=== PATIENT | female | born 1955 | race Caucasian/White ===

== ENCOUNTER 2017-02-27 10:37 | Emergency (ER) | payer OTHER ==
[2017-02-27] MEDS ORDERED: DEXAMETHASONE 10 MG/ML VIAL PO STA (11:54)
[2017-02-27] MEDS ORDERED: MECLIZINE 12.5 MG TABLET PO STA (11:55)
[2017-02-27] MEDS ORDERED: MECLIZINE 12.5 MG TABLET PO ONE (11:56)
[2017-02-27] MEDS ORDERED: DEXAMETHASONE 10 MG/ML VIAL ONE (11:57)
--- NOTE | 2017-02-27 12:00 | ED Physician Documentation ---
History of Present Illness - Stated complaint Stated Complaint: DIZZY - Chief complaint Chief Complaint: General - History obtained from History obtained from: Patient, Family - History of Present Illness Timing: How many weeks ago (4) - Additonal information Additional information: 61 y/o female has had a problem with pain, muffled hearing and dizziness waxing and waning for the past month. Today she is much more dizzy than previous and she continues to have symptoms of ear pain and muffled hearing despite trying a decongestant. She felt the decongestant helped at first and is not helping now. Review of Systems Constitutional: reports: Chills, Fatigue. denies: Fever Eyes: denies: Decreased vision Ears: reports: Loss of hearing, Ear pain, Tinnitus/ringing Nose: reports: Congestion Throat: denies: Sore throat Respiratory: reports: Cough GI: reports: Nausea. denies: Vomiting PD PAST MEDICAL HISTORY - Past Medical History Past Medical History: Yes Other Past Medical History: cyst on thyroid - Past Surgical History Past Surgical History: Yes - Present Medications Home Medications: Ambulatory Orders Medication Instructions Recorded Confirmed Azithromycin [Zithromax] 250 mg PO DAILY #6 tablet 02/27/17 Meclizine HCl [Bonine] 25 mg PO Q6HR PRN #20 tab.chew 02/27/17 - Allergies Allergies/Adverse Reactions: Allergies Allergy/AdvReac Type Severity Reaction Status Date / Time Penicillins Allergy Respiratory Verified 02/27/17 10:42 - Social History Does the pt smoke?: Yes Smoking Status: Current every day smoker Does the pt drink ETOH?: No Does the pt have substance abuse?: No - Immunizations Immunizations are current?: Yes PD ED PE NORMAL - Vitals Vital signs reviewed: Yes (hypertensive ) - General General: Alert and oriented X 3, Well developed/nourished, Other (The patient prefers to keep the head covered. ) - HEENT HEENT: Atraumatic, PERRL, EOMI, Other (both TM's are inflamed along the umbo with rounding of the umbo) - Neck Neck: Supple, no meningeal sign, No bony TTP - Cardiac Cardiac: RRR, No murmur - Respiratory Respiratory: No respiratory distress, Clear bilaterally - Abdomen Abdomen: Soft, Non tender - Back Back: No CVA TTP, No spinal TTP - Derm Derm: Normal color, Warm and dry, No rash - Extremities Extremities: No deformity, No edema - Neuro Neuro: No motor deficit, No sensory deficit - Psych Psych: Normal mood, Normal affect Results - Vitals Vitals: Vital Signs - 24 hr 02/27/17 10:40 Temperature 36.2 C L Heart Rate 73 Respiratory 18 Rate Blood Pressure 176/69 H O2 Saturation 97 Oxygen O2 Source Room air PD MEDICAL DECISION MAKING - ED course Complexity details: reviewed old records, reviewed results, re-evaluated patient , considered differential, d/w patient, d/w family ED course: 61 y/o female with dizziness and era pain appears to have inflammation in the middle ear bilaterally and has mild bilateral nystagmus. She is given decadron in the ED and we will put her on some zithromax. Departure - Departure Disposition: 01 Home, Self Care Clinical Impression: Otitis media Qualifiers: Otitis media type: allergic Laterality: bilateral Chronicity: acute Recurrence : not specified as recurrent Qualified Code(s): H65.113 - Acute and subacute allergic otitis media (mucoid) (sanguinous) (serous), bilateral Condition: Stable Instructions: ED Otitis Media Acute Adult Follow-Up: [facility] [Provider Group] [facility] [Provider Group] Prescriptions: Meclizine HCl [Bonine] 25 mg PO Q6HR PRN #20 tab.chew PRN Reason: Dizziness Azithromycin [Zithromax] 250 mg PO DAILY #6 tablet Comments: Today in the Emergency Department your blood pressure was elevated. This can happen from the stress of the visit itself, from a current illness or circumstance or from uncontrolled hypertension. If you take blood pressure medications take your usual mediations, have your blood pressure re-checked in an appropriate setting and follow up any elevation with your primary care doctor.
[2017-02-27 12:22] VITALS: BP 169/71
== END 2017-02-27 12:20 | disposition home or self-care (01) ==
LOC: ED 10:37
DX: H65.113 Acute and subacute allergic otitis media (mucoid) (sanguinous) (serous), bilateral (principal); F17.200 Nicotine dependence, unspecified, uncomplicated
CPT/HCPCS: 99283; A9270

== ENCOUNTER 2019-02-21 18:43 | Outpatient (CLI) | payer OTHER ==
--- NOTE | 2019-02-24 09:53 | MRI Report ---
Reason: LOW BACK PAIN Procedure Date: 02/21/2019 Accession Number: [id number] / [id number] Procedure: MRI - Lumbar Spine W/O CPT Code: FULL RESULT: EXAM: MRI LUMBAR SPINE WITHOUT CONTRAST EXAM DATE: 02/21/2019 08:31 PM. CLINICAL HISTORY: Low back pain. Bilateral leg weakness. COMPARISON: None. TECHNIQUE: Multiplanar, multisequence T1-weighted and fluid-sensitive sequences of the lumbar spine from T12 to S1 without contrast. Other: None. FINDINGS: Spinal Canal: The conus terminates at L1-L2. The conus medullaris and cauda equina are unremarkable. Alignment: No fractures. A benign hemangioma is in the S2 vertebral body. Bone Marrow: Five [id number] lumbar vertebral bodies are assumed. No gross fractures or bone lesions. No bone marrow replacement. Disk Levels/Facets: All visualized intervertebral disks are desiccated. T9-T10: Anterior endplate spurring is present. T10-T11: Anterior endplate spurring is present. T11-T12: Anterior endplate spurring is present. A right foraminal area protrusion causes mild right foraminal narrowing. T12-L1: Anterior endplate spurring is present. L1-L2: Moderate disk height loss is accompanied by anterior endplate spurring. A broad-based posterior disk protrusion causes mild spinal canal and bilateral foraminal narrowing. L2-L3: Anterior endplate spurring is present. A small right foraminal area protrusion causes minimal right foraminal narrowing. L3-L4: Mild ligamentum flavum hypertrophy and right facet osteoarthritis causes mild right foraminal narrowing. L4-L5: A broad-based posterior disk protrusion, severe ligamentum flavum hypertrophy, and severe facet hypertrophy cause mild spinal canal and minimal bilateral foraminal narrowing. L5-S1: Severe bilateral facet osteoarthritis causes minimal right and mild left foraminal narrowing. Musculature: Normal. No edema or fatty atrophy. Other: The partially visualized retroperitoneum is unremarkable. IMPRESSION: 1. Mild right foraminal narrowing at T11-T12 due to disk protrusion. 2. Mild spinal canal and bilateral foraminal narrowing at L1-L2 due to disk protrusion. 3. Mild spinal canal narrowing at L4-L5 due to disk and posterior element degenerative changes. 4. Mild left foraminal narrowing at L5-S1 due to facet osteoarthritis. Comment: The following findings are so common in adults without low back pain that while we report their presence, they must be interpreted with caution and in the context of the clinical situation. (Reference Sarahk et al, Spine 2001) Prevalence of findings in patients without low back pain: Disk degeneration (any evidence): 92% Disk desiccation/T2 signal loss: 83% Disk height loss: 56% Disk bulge: 64% Disk protrusion: 32% Annular tear/high intensity zone: 38% RADIA
== END 2019-02-21 18:44 | disposition home or self-care (01) ==
LOC: DI 18:43
PROVIDERS: ATTEND Family Medicine
DX: M48.061 Spinal stenosis, lumbar region without neurogenic claudication (principal); M51.26 Other intervertebral disc displacement, lumbar region; M47.817 Spondylosis without myelopathy or radiculopathy, lumbosacral region; M51.24 Other intervertebral disc displacement, thoracic region; M25.559 Pain in unspecified hip
CPT/HCPCS: 72148